=== PATIENT | male | born 1985 | race Caucasian/White ===

== ENCOUNTER 2025-10-22 14:55 | Inpatient (IN) | payer OTHER, SELFPAY ==
[2025-10-22 13:22] VITALS: BP 138/82
--- NOTE | 2025-10-22 13:27 | ED.GENMED ---
History of Present Illness
<Amrit Ki Gutierrez MD - Last Filed: 10/22/25 15:43>
General
Chief Complaint: Vascular Symptoms
Time Seen by Provider: 10/22/25 13:19
<Princess Mccall PA-C - Last Filed: 10/22/25 16:08>
History of Present Illness
History of Present Illness:
Amrit is a 39-year-old male with past medical history of IV drug abuse who was brought in by police for medical clearance today. He has had multiple wounds to his anterior neck for the past 3 months and reports they have worsened substantially
over the last several weeks. Was seen at this morning and was supposed to be admitted for debridement but signed out AMA. He has no other complaints. No fevers or chills.
Phy Exam
<Princess Mccall PA-C - Last Filed: 10/22/25 16:08>
General Physical Exam
General Presentation: well appearing and no apparent distress
General Skin: warm and dry
General Habitus: normal
General Mental: alert
General Hydration: appears well hydrated
ENT Exam
ENT Exam: EOMI, pharynx normal, neck supple and normocephalic
Eye Exam
Eye Exam: PERRL, cornea clear and conjunctiva normal
Cardiovascular Exam
Cardiovascular Exam: regular rate/rhythm, no edema, no murmur and normal peripheral pulses
Pulmonary Exam
Pulmonary Exam: lungs clear, no respiratory distress, no rales, no crackles, no rhonchi, no stridor, no wheezing and no cough
Gastrointestinal Exam
Gastrointestinal Exam: normal bowel sounds, non tender, soft, no organomegaly, no pulsatile mass and non distended
Neurological Exam
Neurological Exam: alert, oriented x3, no motor deficits and speech normal
Musculoskeletal Exam
Musculoskeletal Exam: full ROM and no edema
Skin Exam
Skin Exam: normal color, warm/dry, no rash, no petechia and other (Wounds to the anterior neck see photograph)
Psychiatric Exam
Psychiatric Exam: normal mood/affect
Course
<Amrit Gutierrez MD - Last Filed: 10/22/25 15:43>
Orders/Labs/Results
Orders:
Orders
10/22/25 13:32
CT Neck With Iv Contrast Urgent
Comment:
Reason For Exam: neck wound infection
SURGICAL CONSULT Urgent
Consulting Provider: Trace Orosco
Was physician already notified: Yes
10/22/25 13:45
Complete Blood Count/With Diff Urgent
Comprehensive Metabolic Panel Urgent
Blood Culture Q30M
ROSEANNE Source: Blood/Venous
Specimen Description:
10/22/25 13:52
Cefepime HCl [Maxipime] 2,000 mg IV NOW STA
10/22/25 14:01
INFECTIOUS DISEASE CONSULT Routine
Consulting Provider: Iris Gonzalez
Was physician already notified: Yes
10/22/25 14:08
Blood Culture Q30M
ROSEANNE Source: Blood/Venous
Specimen Description:
Wound Culture [Wound/Abscess/Other Culture] Urgent
ROSEANNE Source: Neck
Specimen Description:
Date Specimen was Collected: 10/22/25
Time Specimen was Collected: 13:56
10/22/25 14:10
0.9% Sodium Chloride 1000 ml [Nss] 1,000 ml IV BOLUS
10/22/25 14:37
Admit/Transfer Patient As Directed
Co-Sign Provider:
Level of Care: Inpatient admission
Assign to:: Telemetry
Physician / Group: rosina
Diagnosis: neck wounds xylazine
Reason for Telemetry: Arrhythmia
Date to Stop Telemetry: 10/25/25
Time to Stop Telemetry: 11:00
Reason for Hospitalization: neck wounds xylazine
Expected length of stay greater than two midnights?: Yes
ELOS- Estimated Length of Stay in days: 2
I certify the patient meets the requirements for IP care: Yes
PRN Pain Medication Management As Directed
May give lesser potent ordered pain med per pt: Yes
preference::
Protocol:: Medication orders for pain may be administered in a
manner that supports deferring to patient preference
when the pt is:
- Requesting an ordered lesser potent pain medication.
Least to most potent pain medications are defined
as: acetaminophen < NSAID < tramadol < opioids
(morphine, oxycodone, hydromorphone).
- Requesting a lesser dose of the same medication IF
ORDERED.
- Requesting a less intrusive route of administration
if both routes are prescribed by the provider (PO <
IV).
10/22/25 14:38
Code Status As Directed
Resuscitation Status: Full Code
10/22/25 14:43
DAPTOmycin [Cubicin] 500 mg Syringe [Syringe-Pump] 0 ml IV NOW
10/22/25 16:00
MetroNIDAZOLE [Flagyl] 500 mg PO Q8
10/25/25 11:00
DC Protocol for Telemetry ONCE
Abnormal Lab Results
10/22/25
13:45
RBC 3.89 L 10^6/uL
(4.70-6.10)
Hgb 8.3 L g/dL
(13.0-18.0)
Hct 28.1 L %
(39.0-52.0)
MCV 72.2 L fL
(80.0-94.0)
MCH 21.3 L pg
(27.0-31.0)
MCHC 29.5 L g/dL
(33.0-37.0)
RDW 17.2 H %
(11.5-14.5)
MPV 10.8 H fL
(7.4-10.4)
Absolute Neuts (auto) 7.6 H 10^3/uL
(1.4-6.5)
Absolute Lymphs (auto) 0.7 L 10^3/uL
(1.2-3.4)
Neutrophils % 87.9 H %
(42.2-75.2)
Lymphocytes % 8.3 L %
(20.5-51.1)
Sodium 134 L mmol/L
(135-145)
Glucose 101 H mg/dl
(70-99)
10/22/25 13:45
10/22/25 13:45
Vital Signs
Initial and Last Documented VS:
Initial Vital Signs
Temp Pulse Resp BP Pulse Ox
36.9 C 71 20 138/82 99
10/22/25 13:22 10/22/25 13:22 10/22/25 13:22 10/22/25 13:22 10/22/25 13:22
Last Documented Vital Signs
Temp Pulse Resp BP Pulse Ox
36.9 C 74 13 138/82 99
10/22/25 13:22 10/22/25 15:45 10/22/25 15:45 10/22/25 13:22 10/22/25 13:32
Luislt;Princess Mccall PA-C - Last Filed: 10/22/25 16:08>
Orders/Labs/Results
Orders:
Orders
10/22/25 13:32
CT Neck With Iv Contrast Urgent
Comment:
Reason For Exam: neck wound infection
SURGICAL CONSULT Urgent
Consulting Provider: Trace Orosco
Was physician already notified: Yes
10/22/25 13:45
Complete Blood Count/With Diff Urgent
Comprehensive Metabolic Panel Urgent
Blood Culture Q30M
ROSEANNE Source: Blood/Venous
Specimen Description:
10/22/25 13:52
Cefepime HCl [Maxipime] 2,000 mg IV NOW STA
10/22/25 14:01
INFECTIOUS DISEASE CONSULT Routine
Consulting Provider: Iris Gonzalez
Was physician already notified: Yes
10/22/25 14:08
Blood Culture Q30M
ROSEANNE Source: Blood/Venous
Specimen Description:
Wound Culture [Wound/Abscess/Other Culture] Urgent
ROSEANNE Source: Neck
Specimen Description:
Date Specimen was Collected: 10/22/25
Time Specimen was Collected: 13:56
10/22/25 14:10
0.9% Sodium Chloride 1000 ml [Nss] 1,000 ml IV BOLUS
10/22/25 14:37
Admit/Transfer Patient As Directed
Co-Sign Provider:
Level of Care: Inpatient admission
Assign to:: Telemetry
Physician / Group: rosina
Diagnosis: neck wounds xylazine
Reason for Telemetry: Arrhythmia
Date to Stop Telemetry: 10/25/25
Time to Stop Telemetry: 11:00
Reason for Hospitalization: neck wounds xylazine
Expected length of stay greater than two midnights?: Yes
ELOS- Estimated Length of Stay in days: 2
I certify the patient meets the requirements for IP care: Yes
PRN Pain Medication Management As Directed
May give lesser potent ordered pain med per pt: Yes
preference::
Protocol:: Medication orders for pain may be administered in a
manner that supports deferring to patient preference
when the pt is:
- Requesting an ordered lesser potent pain medication.
Least to most potent pain medications are defined
as: acetaminophen < NSAID < tramadol < opioids
(morphine, oxycodone, hydromorphone).
- Requesting a lesser dose of the same medication IF
ORDERED.
- Requesting a less intrusive route of administration
if both routes are prescribed by the provider (PO <
IV).
10/22/25 14:38
Code Status As Directed
Resuscitation Status: Full Code
10/22/25 14:43
DAPTOmycin [Cubicin] 500 mg Syringe [Syringe-Pump] 0 ml IV NOW
10/22/25 16:00
MetroNIDAZOLE [Flagyl] 500 mg PO Q8
10/25/25 11:00
DC Protocol for Telemetry ONCE
Abnormal Lab Results
10/22/25
13:45
RBC 3.89 L 10^6/uL
(4.70-6.10)
Hgb 8.3 L g/dL
(13.0-18.0)
Hct 28.1 L %
(39.0-52.0)
MCV 72.2 L fL
(80.0-94.0)
MCH 21.3 L pg
(27.0-31.0)
MCHC 29.5 L g/dL
(33.0-37.0)
RDW 17.2 H %
(11.5-14.5)
MPV 10.8 H fL
(7.4-10.4)
Absolute Neuts (auto) 7.6 H 10^3/uL
(1.4-6.5)
Absolute Lymphs (auto) 0.7 L 10^3/uL
(1.2-3.4)
Neutrophils % 87.9 H %
(42.2-75.2)
Lymphocytes % 8.3 L %
(20.5-51.1)
Sodium 134 L mmol/L
(135-145)
Glucose 101 H mg/dl
(70-99)
10/22/25 13:45
10/22/25 13:45
Vital Signs
Initial and Last Documented VS:
Initial Vital Signs
Temp Pulse Resp BP Pulse Ox
36.9 C 71 20 138/82 99
10/22/25 13:22 10/22/25 13:22 10/22/25 13:22 10/22/25 13:22 10/22/25 13:22
Last Documented Vital Signs
Temp Pulse Resp BP Pulse Ox
36.9 C 74 13 138/82 99
10/22/25 13:22 10/22/25 15:45 10/22/25 15:45 10/22/25 13:22 10/22/25 13:32
Procedures
<Amrit Gutierrez MD - Last Filed: 10/22/25 15:43>
IV Access
Indication: Emergent access required, RN unable to obtain and Physician skill needed
Performed by:: Amrit Gutierrez MD
Site:: left upper arm
Gauge:: 18G
Ultrasound Guidance: Yes
<Princess Mccall PA-C - Last Filed: 10/22/25 16:08>
MDM/Problems Addressed
Differential Diagnosis Includes:
Skin necrosis, soft tissue infection, bacteremia
MDM/Problems Addressed:
CT neck obtained which characterizes depth of wounds and that shows possible foreign body embedded within them. Photographs sent to general surgery who feels that this can be managed here. They are planning for operative debridement tomorrow.
Infectious disease also contacted for antibiotic recommendations as patient lists a allergy to vancomycin. They are recommending daptomycin and cefepime for his wound infections.
Wound culture sent. Given plans for operative debridement and need for IV antibiotics patient has been admitted to the hospitalist service for further management.
<Amrit Gutierrez MD - Last Filed: 10/22/25 15:43>
*Pulse Oximetry
SaO2: 99
Oxygen Mode of Delivery: Room air
<Princess Mccall PA-C - Last Filed: 10/22/25 16:08>
*Pulse Oximetry
Patient hypoxic: no
*Critical Care Note
Total Time (30-74mins, 75-104mins- exclusive of procedures): Not Applicable
ED Attending Note
<Amrit Gutierrez MD - Last Filed: 10/22/25 15:43>
ED Attending Note
Patient seen and examined by attending physician: Yes
ED Attending Note:
I have seen and evaluated the patient with a [id number] encounter. I have spoken to the advance practicer provider and involved in the medical history, the physical exam, medical decision making.
Evaluation and management service: agree unless noted differently below.
Results interpretation: agree unless noted differently below.
Focused HPI: 39-year-old male with history of IV drug use presents to the ER with red purulent neck wounds. Patient reports that he injects drugs into his neck. Last drug use was earlier today. He says that he has had these wounds on his neck for
months but initially they were much more mild over the past 2 weeks. Become deeper, increased drainage and redness. He was arrested today and brought in for medical treatment prior to incarceration due to these wounds. He has not noticed any
fever chills denies any other acute issues.
Physical exam: Awake and alert, nontoxic. Vital signs normal. See picture below for anterior neck wounds:
Medical Decision Makin-year-old male presents with infected wounds anterior neck in the setting of IV drug use. Plan to place an IV send labs. Check CT to evaluate extent of infection. Discussed with general surgery for consultation. Plan
for admission.
Discussed with infectious disease regarding antibiotic choice; patient is allergic to vancomycin. They recommended daptomycin and cefepime to start.
-
Portions of this chart may have been created with voice recognition software.� Occasional wrong word or��sound alike� substitutions may have occurred due to the inherent limitations of voice recognition software.
Discharge Plan
Departure
Patient Disposition: Admit
Date of Disposition: 10/22/25
Time of Disposition: 14:19
Presentation/result/management discussed w/ accepting MD/DO: Hospitalist
Discharge Problem:
Open wound of neck, Drug use, Cellulitis
Interventions
Interventions:
*General Assessment Last Done: 10/22/25 13:30
*ED COVID-19 Vaccine History Last Done: 10/22/25 13:31
*ED Influenza Vaccine History Last Done: 10/22/25 13:31
[facility] Fall Risk Assessment Tool Last Done: 10/22/25 13:25
ED- Cardiac Assessment Last Done: 10/22/25 15:46
ED- Pulmonary Assessment Last Done: 10/22/25 13:29
ED-Skin Assessment Last Done: 10/22/25 13:29
[2025-10-22 13:55] VITALS: BMI 23.4
[2025-10-22 14:04] LABS: Hematocrit 28.1 % (39.0-52.0); Hemoglobin 8.3 g/dL (13.0-18.0); Mean Corp Hgb Conc. 29.5 g/dL (33.0-37.0); Mean Corpuscular Volume 72.2 fL (80.0-94.0); Nucleated Red Blood Cells % 0 % (-); Platelet Count 360 10^3/uL (130-400); Red Cell Dist. Width 17.2 % (11.5-14.5)
[2025-10-22 14:17] LABS: ALT (SGPT) 11 U/L (0-50); AST (SGOT) 18 U/L (17-59); Albumin 3.9 g/dl (3.5-5.0); Alkaline Phosphatase 100 U/L (38-126); Blood Urea Nitrogen 12 mg/dl (9-20); Calcium 9.0 mg/dl (8.4-10.2); Carbon Dioxide 25 mmol/L (22-30); Chloride 104 mmol/L (98-107); Estimated Creatinine Clearance 89 ml/min; Glucose 101 mg/dl (70-99); Potassium 4.8 mmol/L (3.5-5.1); Sodium 134 mmol/L (135-145); Total Protein 8.1 g/dl (6.3-8.2); eGFR > 60.00
--- NOTE | 2025-10-22 14:20 | CON.ID ---
Consultation
-
Date/Time Consultation Requested: 10/22/2025 1334
Date/Time Consultation Performed: 10/22/2025 1420
Requesting Provider: Dr. Matt Mckay
Performing Provider: Dr. Iris Gonzalez
Reason for Consultation: IVDU with neck wounds
Chief Complaint / Past History
Chief Complaint
Worsening neck wounds
History of Present Illness
39 year old male with long standing hx of IVDU presented to ED today with worsening neck wounds. He reports currently injecting fentanyl with tranq on to his neck due to no other access. He developed bilateral neck wounds 2 months ago. The wounds
progressively larger and deeper. No fevers or chills. No difficulty swallowing. No neck stiffness. He does not share needles. He does reuse needles. 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
ORIF. He was picked up by police today and brought to ED. Reports Vancomycin rash on arms, but tolerated slow Vanco infusion.
Past History
Additional Past Medical History:
Active IVDU
hx R humerus osteo (from IVDU) s/p ORIF with javy
hx MRSA
Allergy History:
vancomycin Allergy (Verified 10/22/25 13:21)
Hives
Social History
Tobacco: Smoker (1PPD)
Alcohol: None
Drug: IVDA (Fentanyl+Tranq)
Employment: Employed (Construction)
Family History
Family History: Not Pertinent
Review of Systems
Review of Systems
General: Negative Fever, Chills or Change in Appetite
HEENT: Negative Stiff Neck, Sinus Problems, Headache or Pharyngitis
Cardiovascular: Negative Chest Pain
Respiratory: Negative Dyspnea or Cough
Gasteroenterology: Negative Nausea, Vomiting or Diarrhea
Genital / Urological: Negative Dysuria or Flank Pain
Endocrine: Negative Weakness
Musculoskeletal: Negative Joint Pain, Joint Swelling or Arthralgias
Neurological: Negative Dizziness
All systems: All other systems were reviewed and were negative
Vital Signs
Temp Pulse Resp BP Pulse Ox
98.4 F 71 20 138/82 99
10/22/25 13:22 10/22/25 13:22 10/22/25 13:22 10/22/25 13:22 10/22/25 13:32
Physical Exam
Physical Exam
Constitutional: Non-toxic
Head: Other (No sinus tenderness)
Eyes: No Conjunctival Hemorrhage and Sclera Anicteric
Cardiovascular: Regular Rate and S1/S2; Negative Murmur
Pulmonary: Clear
Gastrointestinal: Soft, Non Tender, Non Distended and Normal Bowel Sounds
Genito-Urinary: Negative CVA Tenderness
Extremities: Negative Edema
Skin: Other (Multiple tattoos)
Wound: Other (Superior to bilateral clavicles large deep wounds R>L with skin necrosis, dark yellow-real slough, signficant julius-wound induration and erythema)
Neurological: AO x 3
Lab / Diagnostic Study Results
10/22/25 13:45
10/22/25 13:45
Abs Immat Gran (auto) 0.0 10^3/uL (0-0.05) 10/22/25 13:45
Absolute Neuts (auto) 7.6 10^3/uL (1.4-6.5) H 10/22/25 13:45
Absolute Lymphs (auto) 0.7 10^3/uL (1.2-3.4) L 10/22/25 13:45
Absolute Monos (auto) 0.3 10^3/uL (0.1-0.6) 10/22/25 13:45
Absolute Basos (auto) 0.0 10^3/uL (0-0.2) 10/22/25 13:45
Immature Gran % 0.3 % (0-0.5) 10/22/25 13:45
Neutrophils % 87.9 % (42.2-75.2) H 10/22/25 13:45
Lymphocytes % 8.3 % (20.5-51.1) L 10/22/25 13:45
Monocytes % 3.2 % (1.7-9.3) 10/22/25 13:45
Eosinophils % 0.1 % (0-6) 10/22/25 13:45
Basophils % 0.2 % (0-2) 10/22/25 13:45
Microbiology Results
Micro:
10/22/25 13:45 Blood Culture - Pending
Blood/Venous
10/22/[address]: Heterogeneous focal area of abnormal soft tissue along the base of the right neck anteriorly measuring at least 4.5 cm in length with tiny air bubble/air-fluid level superiorly and 0.7 x 0.2 standard high attenuation density
(suspected soft tissue foreign body) superomedially compatible with marked infectious process/phlegmon/abscess. No accompanying airway compromise.
Assessment / Plan
# Bilateral large necrotic neck wounds from IVDU (fentanyl with tranq)
# Neck cellulitis
# Active IVDU
# Vancomycin infusion reaction; tolerated slower infusion
- Agree with surgical consult for debridement snd deep tissue cx
- Follow blood cx's.
- Start Daptomycin 500mg IV q24. Check CK in am.
- Start cefepime 2g IV q8h and metronidazole 500mg po q8h.
- Pt agreeable to HIV screen and HCV screen.
Care Review
Plan reviewed with: Physician (Dr. Gutierrez)
--- NOTE | 2025-10-22 14:38 | CON.GS ---
Medical History
-
Chief Complaint: Neck wound/pain
History of Present Illness:
Patient is a 39 yo M with a PMH notable for IVDA and active tobacco use who presented to the ER with acute on chronic neck wounds. He states that he has had wounds overlying his neck for approximately 3 months. Over the past week he has noticed
worsening pain and redness. No medical treatment for these wounds. No current antibiotic use. Denies any issues with breathing or swallowing. No fevers or chills. Does report injecting into his jugular veins bilaterally. He has previously had
issues with a upper extremity wound requiring debridement.
Past Medical History
Past Medical History: None
Past Surgical History: Other (Prior debridement of RUE wound)
Social History
Tobacco: Smoker (1 PPD)
Alcohol: None
Drug: Cocaine and IVDA (Fentanyl and Xylazine)
Family History
Family History: Reviewed & Not Pertinent
Allergies / Home Medications
Allergy/AdvReac Type Severity Reaction Status Date / Time
vancomycin Allergy Hives Verified 10/22/25 13:21
�Medication �Instructions �Recorded �Confirmed �Type
No Meds [No Current Medications] 10/22/25 10/22/25 History
Review of Systems
-
A 10 point review of systems was completed, and was negative except as per HPI.
Physical Exam
Vital Signs
Temp Pulse Resp BP Pulse Ox
98.4 F 71 20 138/82 99
10/22/25 13:22 10/22/25 13:22 10/22/25 13:22 10/22/25 13:22 10/22/25 13:32
10/21/25 10/22/25 10/23/25
06:59 06:59 06:59
Actual Weight 65.7 kg
Body Mass Index (BMI) 23.4
Lab Results
10/22/25 13:45
10/22/25 13:45
WBC 8.7 10^3/uL (4.8-10.8) 10/22/25 13:45
Hgb 8.3 g/dL (13.0-18.0) L 10/22/25 13:45
Hct 28.1 % (39.0-52.0) L 10/22/25 13:45
Plt Count 360 10^3/uL (130-400) 10/22/25 13:45
Abs Immat Gran (auto) 0.0 10^3/uL (0-0.05) 10/22/25 13:45
Neutrophils % 87.9 % (42.2-75.2) H 10/22/25 13:45
Physical Exam
General: Well Developed, Well Nourished and No Apparent Distress
HEENT: Normocephalic, Anicteric and Other (Large wound along anterior neck, superficial purulence and necrotic tissue, no active drainage of purulence, surrounding erythema and induration, no clearly palpable fluctuance, tender to palpation (see ER
note for picture))
Respiratory: Non Labored Respirations
Cardiac: Irregular Rhythm (Trachycardic)
Skin: Warm and Dry
Neuro: Nonfocal/Grossly Intact
Data Reviewed
-
CT Scan: Image Personally Visualized and interpreted and Report Reviewed by me
Labs: Labs Reviewed by me
Assessment / Plan
-
Patient is a 39 yo M p/w bilateral anterior neck wounds related to IVDA
CT demonstrates concern for a possible abscess as well as foreign body along the RIGHT. Infection does not seem to spread down to his carotid or jugular vessels. Given the presence of a possible abscess as well as for debridement of the
superficial purulence and necrotic debris recommend operative exploration and debridement.
Plan for excision and debridement of bilateral neck wounds in the OR. The procedure itself, as well as the risks, benefits, and alternatives was discussed. Specifically, we discussed the risks of bleeding, infection, injury to surrounding
structures (muscle, nerves, blood vessels), persistent wound complications necessitating further drainage procedures and debridements, and general anesthetic complications. Typical postprocedural recovery was discussed. All questions answered.
Patient has been added to the OR schedule for tomorrow given OR availability and timing. Would admit to Hospitalist with IV antibiotics and NPO PM.
-- Excision and debridement of bilateral neck wounds, added to schedule for tomorrow
-- Diet: OK for regular, NPO PM
-- Abx: Cefepime, Dapto, Flagyl, ID on board
--- NOTE | 2025-10-22 14:42 | HPS.HSE ---
Addendum entered and electronically signed by Bo Fields MD 10/22/25 19:32:
Started buprenorphine microdosing protocol.
Original Note:
Family Physician
-
Family Physician: * NONE
Chief Complaint
-
neck wounds
History of Present Illness
39-year-old male past medical history of fentanyl/xylazine/cocaine/use, nicotine user, hepatitis C untreated, javy in right arm, presenting with wounds in the neck from xylazine injections. He has had wounds in the neck for a few months but over the
past few days it has become more painful and draining discharge. He denies any difficulty swallowing. He denies any fevers or chills. Denies any chest pain or shortness of breath.
He injects xylazine/fentanyl/cocaine all over his body including his neck. He last used this morning. He feels anxious but denies any nausea or vomiting or other symptoms of withdrawal at this time.
He denies alcohol use.
Medical History
Past Medical History
Past Medical History: Reports Other (fentanyl/xylazine/cocaine/use, nicotine user, hepatitis C untreated, javy in right arm)
Past Surgical History: Reports None
Social History
Tobacco: Smoker
Alcohol: None
Drug: Cocaine, Narcotics and IVDA
Family History
Family History: Not pertinent
Allergies / Home Medications
Allergies reflects when Allergies were last updated in [facility].
Home Medications with original date entered in [facility]
Allergy/Medication List:
Allergies
Allergy/AdvReac Type Severity Reaction Status Date / Time
vancomycin Allergy Hives Verified 10/22/25 13:21
Home Medications
No Meds [No Current Medications] 10/22/25
Review of Systems
-
History Source: Patient
A 12 point ROS was completed and negative except as noted: Yes
Constitutional: Reports No Symptoms
EENT: Reports No Symptoms
Respiratory: Reports No Symptoms
Cardiac: Reports No Symptoms
Abdomen/GI: Reports No Symptoms
: Reports No Symptoms
Musculoskeletal: Reports No Symptoms
Skin: Reports No Symptoms
Neurological: Reports No Symptoms
Endocrine: Reports No Symptoms
Hematologic/Lymphatic: Reports No Symptoms
Psych: Reports No Symptoms
Physical Exam
Vital Signs
Vital Signs
Temp Pulse Resp BP Pulse Ox
98.4 F 71 20 138/82 99
10/22/25 13:22 10/22/25 13:22 10/22/25 13:22 10/22/25 13:22 10/22/25 13:32
Physical Exam
General: Well Developed, Well Nourished and No Apparent Distress
HEENT: NormoCephalic, Moist mucous membranes and Atraumatic
Respiratory: Clear
Cardiac: S1/S2 and Regular Rhythm; No Murmur or Rub
GI: Soft, Non Tender, Non Distended and Normal Bowel Sounds; No Organomegaly
Rectal: Deferred by Provider
Musculoskeletal: No Clubbing, No Cyanosis and No Edema
Skin: No Rash
Neuro: Nonfocal/grossly intact
Laboratory Results
-
10/22/25 13:45
10/22/25 13:45
Laboratory Results
Total Bilirubin 0.3 mg/dl (0.2-1.3) 10/22/25 13:45
AST 18 U/L (17-59) 10/22/25 13:45
ALT 11 U/L (0-50) 10/22/25 13:45
Alkaline Phosphatase 100 U/L (38-126) 10/22/25 13:45
Data Reviewed
-
Lab Data: Labs Reviewed by me
Old Records: Reviewed
Impression/Plan
-
IMPRESSION:
PLAN:
# Neck wound/possible abscess secondary to xylazine injections
-CT neck shows heterogeneous focal area of abnormal soft tissue along the base of the right neck anteriorly measuring 4.5 cm with tiny air bubbles/air-fluid level superiorly and 0.7 x 0.2 standard high attenuation density suspected soft tissue
foreign body superomedial laterally compatible with marked infectious process/phlegmon/abscess
- Daptomycin/cefepime/Flagyl
- ID consult
- Surgery planning on debridement today
-N.p.o.
# Microcytic anemia
- Check iron studies, B12 and folate
Fentanyl/xylazine/cocaine use
-No signs of withdrawal currently
- Monitor for withdrawal
Untreated hepatitis C
- Outpatient follow-up with hepatology
Nicotine user
- Nicotine patch
History of javy in right arm
Full code
DVT prophylaxis�SCDs
N.p.o.
[2025-10-22] MEDS: NSS 1000 IV (15:03)
[2025-10-22] MEDS: MAXIPIME 2000 MG IV (15:03)
[2025-10-22] MEDS: FLAGYL 500 MG PO (16:59)
[2025-10-22] MEDS: CUBICIN 10 MG IV (16:59)
[2025-10-22 17:12] VITALS: BP 134/87
--- NOTE | 2025-10-22 18:07 | PTCARENOTE ---
pt rates pain level 9/10 in neck, independent, oriented to room and use of call mendoza, will continue to monitor.
[2025-10-22 18:15] VITALS: BP 188/91
[2025-10-22 19:00] VITALS: BP 149/84
--- NOTE | 2025-10-22 19:36 | PTCARENOTE ---
Dr. Donnie reese texted of patient's b/p of 188/91 and COWS rating of 1 but patient requesting withdrawal medications. Dr. Fields will place orders, next shift RN Deandre made aware to follow up, will continue to monitor.
[2025-10-22 20:30] LABS: Iron 22 ug/dl (49-181)
[2025-10-22 20:40] LABS: Total Iron Binding Capacity 281 ug/dl (261-462)
[2025-10-22 21:13] LABS: Ferritin 37.2 ng/ml (17.9-464.0)
--- NOTE | 2025-10-22 21:41 | PTCARENOTE ---
Pt noted to have eloped at 2036. Security and street supervisor notified. Pt not found on campus, security notified local authorities.
[2025-10-22 21:44] LABS: Folate 4.6 ng/ml (2.76-20); Vitamin B12 420 pg/ml (239-931)
== END 2025-10-22 22:11 | disposition left against medical advice (07) | DRG 603 ==
LOC: 3 WEST ACU 14:55
PROVIDERS: ADMITTING PHYSICIAN Hospitalist; CONSULT PHYSICIAN Internal Medicine Infectious Disease; CONSULT PHYSICIAN Surgery; EMERGENCY PHYSICIAN Emergency Medicine
DX: L03.221 Cellulitis of neck (principal); F19.90 Other psychoactive substance use, unspecified, uncomplicated; B19.20 Unspecified viral hepatitis C without hepatic coma; D50.9 Iron deficiency anemia, unspecified; F14.10 Cocaine abuse, uncomplicated; F17.210 Nicotine dependence, cigarettes, uncomplicated; L27.0 Generalized skin eruption due to drugs and medicaments taken internally; T36.8X5A Adverse effect of other systemic antibiotics, initial encounter; Z53.29 Procedure and treatment not carried out because of patient's decision for other reasons
CPT/HCPCS: 70491; 80053; 82077; 82607; 82728; 82746; 83540; 83550; 85025; 87040; 87070; 87205; 93005; 96361; 96374; 99284; J0878; Q9967